=== PATIENT | male | born 1970 | race African-American/Black ===

== ENCOUNTER 2018-01-30 19:47 | Emergency (ER) | payer OTHER ==
[2018-01-30] MEDS ORDERED: IBUPROFEN 800 MG TABLET PO ONE (20:21)
--- NOTE | 2018-01-30 20:27 | ER Document Report ---
ED Extremity Problem, Lower - General Chief Complaint: Toe Injury Stated Complaint: TOE PAIN Time Seen by Provider: 01/30/18 20:11 Mode of Arrival: Ambulatory Information source: Patient Notes: 47-year-old male presents to ED for complaint of pain to the left great toe. He states about 11:00 this morning he dropped a big heavy piece of wood on his left great toe while at work. He states it is been hurting ever since then. Patient is alert and oriented respirations regular and unlabored speaking in full sentences and is able to walk on his foot. Left great toe is swollen and bruised very tender to touch. TRAVEL OUTSIDE OF THE [place] IN LAST 30 DAYS: No - HPI Patient complains to provider of: Injury, Pain, Swelling Location: Great Toe - Left Occurred: This morning Where: Work Onset/Duration: Persistent Quality of pain: Throbbing Severity: Severe Pain Level: 5 Context: Other - Dropped heavy object on his toe Associated symptoms: Painful ambulation Exacerbated by: Hanging down, Movement, Walking Relieved by: Elevation - Related Data Allergies/Adverse Reactions: No Known Allergies Allergy (Verified 08/25/15 17:25) Past Medical History - General Information source: Patient - Social History Smoking Status: Never Smoker Cigarette use (# per day): No Chew tobacco use (# tins/day): No Smoking Education Provided: No Frequency of alcohol use: None Drug Abuse: None Occupation: Manual labor Lives with: Family Family History: Reviewed & Not Pertinent Patient has suicidal ideation: No Patient has homicidal ideation: No Review of Systems - Review of Systems Constitutional: No symptoms reported EENT: No symptoms reported Cardiovascular: No symptoms reported Respiratory: No symptoms reported Gastrointestinal: No symptoms reported Genitourinary: No symptoms reported Male Genitourinary: No symptoms reported Musculoskeletal: Other - Left great toe pain swelling and bruising Skin: Other - Bruise swelling pain to left great toe Hematologic/Lymphatic: No symptoms reported Neurological/Psychological: No symptoms reported -: Yes All other systems reviewed and negative Physical Exam - Vital signs Vitals: Temp Pulse Resp BP Pulse Ox 98.0 F 89 18 120/90 H 97 01/30/18 20:03 01/30/18 20:03 01/30/18 20:03 01/30/18 20:03 01/30/18 20:03 Interpretation: Normal - General General appearance: Appears well, Alert General appearance pediatric: Attentiveness normal, Good eye contact - HEENT Head: Normocephalic, Atraumatic Eyes: Normal Pupils: PERRL - Respiratory Respiratory status: No respiratory distress Chest status: Nontender Breath sounds: Normal Chest palpation: Normal - Cardiovascular Rhythm: Regular Heart sounds: Normal auscultation Murmur: No - Abdominal Inspection: Normal Distension: No distension Bowel sounds: Normal Tenderness: Nontender Organomegaly: No organomegaly - Back Back: Normal, Nontender - Extremities General upper extremity: Normal inspection, Nontender, Normal color, Normal ROM, Normal temperature General lower extremity: Normal ROM, Normal temperature, Normal weight bearing. No: Tatiana's sign Foot: Tender, Ecchymosis - Left great toe, Edema, No evidence of FB. No: Metatarsal compress. pain, Nail injury - Neurological Neuro grossly intact: Yes Cognition: Normal Orientation: AAOx4 Melissa Coma Scale Eye Opening: Spontaneous Melissa Coma Scale Verbal: Oriented Melissa Coma Scale Motor: Obeys Commands Ped [place] Coma Scale Eye Opening: Spontaneous Ped Melissa Coma Scale Verbal: Age appropriate verbal Ped Emlissa Coma Scale Motor: Spontaneous Movements Speech: Normal Motor strength normal: LUE, RUE, LLE, RLE Sensory: Normal - Psychological Associated symptoms: Normal affect, Normal mood - Skin Skin Temperature: Warm Skin Moisture: Dry Skin Color: Normal, Ecchymosis - Left great toe Location of irregularity: Extremities Irregularity with: Swelling, Tenderness Course - Re-evaluation Re-evalutation: 01/30/18 21:19 X-ray discussed with patient and written report of x-ray given to patient. Patient was treated with postop you and crutches and was sent home with a dispense pack of Beverly for his comminuted fracture to the left great toe. Patient has verbalized understanding that he needs to follow-up with orthopedics. Patient agreed with treatment plan and will be discharged home at this time. - Vital Signs Vital signs: Temp Pulse Resp BP Pulse Ox 98.0 F 89 18 120/72 97 01/30/18 20:03 01/30/18 20:03 01/30/18 20:03 01/30/18 20:34 01/30/18 20:03 - Diagnostic Test Radiology reviewed: Image reviewed, Reports reviewed Procedures - Immobilization Left Toe Great toe Time completed: 21:14 Immobilizer type: Crutches, Post-op shoe Performed by: PCT Post-Proc Neuro Vasc Exam: Normal Discharge - Discharge Clinical Impression: Fracture of left great toe Qualifiers: Encounter type: initial encounter Fracture type: closed Phalanx: distal Fr acture alignment: displaced Qualified Code(s): S92.422A - Displaced fracture of distal phalanx of left great toe, initial encounter for closed fracture Disposition: HOME, SELF-CARE Additional Instructions: Fractured Toe You have fractured your toe. Although this fracture doesn't need a cast or splint, emergency evaluation was needed to assess the straightness of the bones and joints. Reduction ("setting") is necessary for toe fractures which are crooked or twisted. A toe fracture will heal in about three weeks. Toe will be treated with a post op shoe as it is your great toe that is broken. You will need to follow-up with orthopedics and he may decide to put you in a boot or a cast that is up to the asset specialist. You may need crutches at first if walking is painful. When you begin walking, be careful NOT to do things that hurt. If weight bearing is not comfortable within a few days, you may require a special shoe, walking boot, or cast. Call the doctor or return at once if severe swelling, severe pain, or numbness develop in the toe, or if you suspect you may have re-injured it. Post-Op Shoe You are to use a "post-op shoe," sometimes also called a "bunnion shoe." This shoe helps protect minor fractures, sprains, and other injuries of the toes or foot. You may remove the shoe for bathing. Walk carefully. If you're feeling pain, put less weight on the foot, take smaller steps, or use a cane. If you have a new injury, you may need to use crutches for the first couple of days. If pain still prevents walking after a few days, contact the doctor. If there's unexpected pain in your foot, if blisters or sore spots develop, or if the shoe is physically coming apart, return at once. Remember that you're welcome to come in at any time to have the fit of the shoe checked and adjusted. USE OF CRUTCHES: The doctor has recommended that you not bear weight at this time. You will need to use crutches. Adjust the crutches so the tops come to about two inches under the armpit while you are standing upright. Use your hands -- not your armpits -- to support your weight. To get into a chair, support yourself with one crutch on the injured side. Hold the chair with the other hand, then lower yourself while putting all your weight on the good leg. Going up stairs is `good leg up, step up, then bring up crutches and bad leg.' Down stairs is `bad leg and crutches down, then bring good leg down.' If you develop numbness or swelling in an arm or hand, you are using the crutches incorrectly. Return if you are having any problems with the crutches. ICE & ELEVATION: Apply ice packs frequently against the painful area. Many different schedules are recommended, such as "20 minutes on, 20 minutes off" or "one hour ice, two hours rest." If you need to work, you may need to go longer between ice treatments. You should plan to have the area ice packed AT LEAST one-fourth of the time. The ice should be applied over the wrap, tape, or splint, or over a layer of cloth -- not directly against the skin. Some ice bags have a built-in cloth and can be put directly on the skin. Your injured part should be elevated as much as possible over the next 48 hours. Try to keep the injury above the level of the heart. Avoid use of the injured area. Elevation and rest will decrease the swelling. USE OF [id number] IBUPROFEN: Ibuprofen (Advil, Nuprin, Medipren, Motrin IB) is a medication for fever and pain control. In addition, it has anti- inflammatory effects which may be beneficial, especially in the treatment of injuries. It's best to take ibuprofen with food. Persons with ulcer disease or allergy to aspirin should notify their physician of this before taking ibuprofen. Ibuprofen can be given every four to six hours, for a total of four doses daily. Age Pain or fever dose Antiinflammatory dose 6-8 yr 200 mg (1 tab) 200 mg (1 tab) 9-11 yr 200 mg (1 tab) 200-400 mg (1-2 tab) 11-14 yr 200-400 mg (1-2 tab) 400 mg (2 tab) 15-adult 400 mg (2 tab) 600 mg (3 tab) ORAL NARCOTIC MEDICATION: You have been given a Beverly dispense pack for pain control. This medication is a narcotic. It's best taken with food, as nausea can result if taken on an empty stomach. Don't operate machinery or drive within six hours of taking this medication. Do not combine this medicine with alcohol, or with any medication which can cause sedation (such as cold tablets or sleeping pills) unless you get permission from the physician. Narcotics tend to cause constipation. If possible, drink plenty of fluids and eat a diet high in fiber and fruits. Please be aware that prescription narcotics also have the potential for abuse. People become addicted to these medications because of the general sense of wellbeing that they induce. This feeling along with a significant reduction in tension, anxiety, and aggression provides a stimulating seductive quality to these drugs. Once your pain is under control, we encourage you to discard your unused narcotics. FOLLOW-UP CARE: If you have been referred to a physician for follow-up care, call the physicians office for an appointment as you were instructed or within the next two days. If you experience worsening or a significant change in your symptoms, notify the physician immediately or return to the Emergency Department at any time for re-evaluation. Forms: Return to Work Referrals: YOBANI PENA MD [Primary Care Provider] - Follow up as needed REGINA SANTOYO MD [ACTIVE STAFF] - Follow up tomorrow
[2018-01-30 20:36] VITALS: BP 120/72
--- NOTE | 2018-01-30 20:53 | RADIOLOGY REPORT (SQ) ---
EXAM DESCRIPTION: FOOT LEFT COMPLETE COMPLETED DATE/TIME: 01/30/2018 8:38 pm REASON FOR STUDY: heavey object fell on great toe COMPARISON: None. NUMBER OF VIEWS: Three views. TECHNIQUE: AP, lateral and oblique radiographic images acquired of the left foot. LIMITATIONS: None. FINDINGS: MINERALIZATION: Normal. BONES: Comminuted fracture of the 1st distal phalanx. Fracture line extends to the proximal articula r surface. JOINTS: No effusions. SOFT TISSUES: No soft tissue swelling. No foreign body. OTHER: No other significant finding. IMPRESSION: Comminuted fracture of the 1st distal phalanx. TECHNICAL DOCUMENTATION: JOB ID: [id number] [email or web address]- All Rights Reserved Reading location - IP/workstation name: [email or web address]
[2018-01-30] MEDS ORDERED: HYDROCODONE/ACETAMINOPHEN 5-325 MG (6 TAB/ER DISP) PO PRN (21:12)
== END 2018-01-30 21:28 | disposition home or self-care (01) ==
LOC: ER 19:47
DX: S92.422A Displaced fracture of distal phalanx of left great toe, initial encounter for closed fracture (principal); M79.675 Pain in left toe(s); W20.8XXA Other cause of strike by thrown, projected or falling object, initial encounter; Y99.0 Civilian activity done for income or pay
CPT/HCPCS: 99283